=== PATIENT | female | born 1990 | race Caucasian/White ===

== ENCOUNTER 2020-05-14 09:28 | Emergency (ER) | payer BC, SELFPAY ==
[~2020-05-14] VITALS: Ht 162.6 cm; Wt 59.0 kg
[2020-05-14 09:29] VITALS: Ht 162.6 cm; Wt 59.0 kg
[2020-05-14 10:42] VITALS: BP 111/73
== END 2020-05-14 10:42 | disposition home or self-care (01) ==
LOC: ED 09:28
DX: B34.9 Viral infection, unspecified (principal); Z20.828 Contact with and (suspected) exposure to other viral communicable diseases
CPT/HCPCS: U0003-CS